=== PATIENT | female | born 1965 | race African-American/Black ===

== ENCOUNTER 2020-02-02 08:41 | Outpatient (CLI) | payer OTHER ==
[2020-02-02] MEDS ORDERED: HORIZANT300 MG (18:02)
== END 2020-02-02 09:30 | disposition home or self-care (01) ==
LOC: OFIC 805 08:41
PROVIDERS: ATTEND Otolaryngology Otology & Neurotology
DX: G43.519 Persistent migraine aura without cerebral infarction, intractable, without status migrainosus (principal); R42 Dizziness and giddiness

== ENCOUNTER → 2020-03-08 | Outpatient (CLI) | payer OTHER ==
[~2020-03-08] MED LIST: HORIZANT300 MG
== END | disposition home or self-care (01) ==
LOC: OFIC 805 10:30
PROVIDERS: ATTEND Otolaryngology Otology & Neurotology
DX: R42 Dizziness and giddiness (principal); G43.509 Persistent migraine aura without cerebral infarction, not intractable, without status migrainosus

== ENCOUNTER 2020-10-02 11:42 | Outpatient (CLI) | payer OTHER | END 2020-10-02 13:12 | disposition home or self-care (01) | LOC: OFIC 805 11:42 | PROVIDERS: ATTEND Otolaryngology Otology & Neurotology | DX: R42 Dizziness and giddiness (principal); R55 Syncope and collapse; G43.519 Persistent migraine aura without cerebral infarction, intractable, without status migrainosus ==